=== PATIENT | female | born 1945 | race Caucasian/White ===

== ENCOUNTER 2025-08-04 13:51 | Outpatient (CLI) | payer MEDICARE, OTHER ==
[~2025-08-04 13:51] MED LIST: AMIT75TA PO; ANAS1TAB PO; ASPI-611 PO; ATOR20TA66 PO; CITA40TA22 PO; CLOT15CR73 TP; GABA-532 PO; GLIP5TAB3 PO; INSU100I27 SQ; INSU100V11 SQ; LEVO112T5 PO
--- NOTE | 2025-08-04 14:45 | RADIOLOGY REPORT ---
EXAM: CT CT CERVICAL SPINE INDICATION: NECK PAIN EXAM DATE: 08/04/2025 02:06 PM COMPARISON: None Technique: CT exam of the cervical spine was performed without intravenous contrast. CT Dose: CTDI volume is 20.7 mGy. Dose-length product is 432 mGy*cm Findings: No evidence of acute fracture. Alignment is within normal limits. Mild degenerative changes of the cervical spine with mild disc space height loss and facet arthropathy. No high-grade canal stenosis. No prevertebral edema. Paraspinal soft tissues are within normal limits. Atrophy versus surgically absent thyroid gland. Visualized lung apices are clear. IMPRESSION: NO EVIDENCE OF ACUTE FRACTURE OR TRAUMATIC MALALIGNMENT OF THE CERVICAL SPINE.
--- NOTE | 2025-08-04 14:57 | RADIOLOGY REPORT ---
Exam: CT CT LUMBAR SPINE DATE OF SERVICE: 08/04/2025 02:09 PM HISTORY: WEAKNESS IN LEGS COMPARISON: None TECHNIQUE: Multiple axial CT images of the lumbosacral spine were obtained. Radiation Dose Information: CT Dose: CTDI volume is 26.6 mGy. Dose-length product is 854 mGy*cm Findings: Vertebral body height is maintained. Vertebral alignment is anatomic. Degenerative changes of the lumbar spine with disc space height loss most pronounced at L3-L4, with moderate right and mild left foraminal stenosis. No significant spinal canal narrowing. Partially visualized hepatic cystic lesions largest in the left hepatic lobe. Cholecystectomy with common bile duct dilatation likely related to a right fat IMPRESSION: No acute fracture or traumatic subluxation.
== END 2025-08-04 23:59 | disposition home or self-care (01) ==
LOC: RAD 13:51
PROVIDERS: ATTEND Nurse Practitioner Adult Health
DX: M47.812 Spondylosis without myelopathy or radiculopathy, cervical region (principal); M50.00 Cervical disc disorder with myelopathy, unspecified cervical region; R53.1 Weakness; Z90.49 Acquired absence of other specified parts of digestive tract; K76.89 Other specified diseases of liver
CPT/HCPCS: 72125; 72131

== ENCOUNTER 2025-08-16 08:45 | Outpatient (CLI) | payer MEDICARE, OTHER ==
[2025-08-16] MEDS ORDERED: iohexol 300mg/ml 100ml inj. ONE (09:02)
--- NOTE | 2025-08-16 10:20 | RADIOLOGY REPORT ---
CLINICAL HISTORY: EVAL LIVER CYST VS LIVER ON RECENT CT TECHNIQUE: CT of the abdomen was performed before and after administration of IV contrast. Arterial and venous phase images were obtained. This exam was performed according to our departmental dose optimization program. Up-to-date CT equipment and radiation dose reduction techniques are utilized as appropriate. 99 mL of Omnipaque 300 was administered intravenously. CTDI 17.5 DLP 468 COMPARISON: 99 FINDINGS: Abdomen/Pelvis: The spleen, pancreas, adrenal glands, and right kidney are normal. A subcentimeter hypodense lesion within the right kidney is too small to adequately characterize. There is a 7.7 cm left hepatic lobe cyst with thin septation and lobular contour. There is a smaller right renal cysts. The gallbladder is absent. The CBD measures 15 mm, mildly dilated for post cholecystectomy state. The imaged colon demonstrates moderate Scattered wall thickening. There is colonic diverticulosis. The abdominal aorta is normal in course and caliber. There are [id number] aortic atherosclerotic calcifications. There is no Enlarged lymph node. No free fluid or free intraperitoneal air is seen. Other: The imaged lower thorax demonstrates mild bibasilar linear atelectasis. There are coronary artery calcifications. No acute osseous abnormality is evident. IMPRESSION: Moderate scattered colonic wall thickening, favor colitis. Bilateral liver cysts measuring up to 7.7 cm on the left. No clearly concerning features. Cholecystectomy with mildly dilated 14 mm common duct. Please correlate with laboratory values and consider MRCP if warranted. Colonic diverticulosis. Coronary artery calcifications.
== END 2025-08-16 23:59 | disposition home or self-care (01) ==
LOC: RAD 08:45
PROVIDERS: ATTEND Nurse Practitioner Adult Health
DX: K57.30 Diverticulosis of large intestine without perforation or abscess without bleeding (principal); K76.89 Other specified diseases of liver; Z90.49 Acquired absence of other specified parts of digestive tract; I70.0 Atherosclerosis of aorta; J98.11 Atelectasis; I25.10 Atherosclerotic heart disease of native coronary artery without angina pectoris
CPT/HCPCS: 74170; Q9967